=== PATIENT | male | born 2000 | race Two or more races ===

== ENCOUNTER 2020-12-08 17:46 | Emergency (ER) | payer MEDICAID, OTHER ==
[~2020-12-08] VITALS: Ht 167.6 cm; Wt 127.0 kg
[2020-12-08 17:49] VITALS: BP 150/72
[2020-12-08] MEDS ORDERED: methylPREDNISolone SOD SUCC 125 MG/2 ML VL IM ONE (21:00)
== END 2020-12-08 21:32 | disposition home or self-care (01) ==
LOC: ER 17:46
DX: S60.522A Blister (nonthermal) of left hand, initial encounter (principal); S60.521A Blister (nonthermal) of right hand, initial encounter; L25.3 Unspecified contact dermatitis due to other chemical products; L29.9 Pruritus, unspecified; R21 Rash and other nonspecific skin eruption; E66.9 Obesity, unspecified; J45.909 Unspecified asthma, uncomplicated; Z68.42 Body mass index [BMI] 45.0-49.9, adult; X58.XXXA Exposure to other specified factors, initial encounter; Y93.89 Activity, other specified; Y92.89 Other specified places as the place of occurrence of the external cause; Y99.0 Civilian activity done for income or pay
CPT/HCPCS: 96372; 99283; J2930

== ENCOUNTER 2022-12-08 17:34 | Emergency (ER) | payer MEDICAID, OTHER ==
[~2022-12-08] VITALS: Ht 172.7 cm; Wt 120.6 kg
[2022-12-08] MEDS ORDERED: EMTRICITABINE-TENOFOVIR 200/300MG(TRUVADA) PO ONE (18:00)
[2022-12-08 22:42] VITALS: BP 130/80
== END 2022-12-08 22:44 | disposition home or self-care (01) ==
LOC: ER 17:34
DX: J45.909 Unspecified asthma, uncomplicated (principal); E66.01 Morbid (severe) obesity due to excess calories; Z20.6 Contact with and (suspected) exposure to human immunodeficiency virus [HIV]; Z68.41 Body mass index [BMI] 40.0-44.9, adult